=== PATIENT | male | born 1970 | race Asian ===

== ENCOUNTER 2025-07-31 13:02 | Outpatient (AMB) | payer OTHER, SELFPAY ==
--- NOTE | 2025-07-31 13:07 | A.OFFPC_ITS ---
Vital Signs 07/31/25 13:08 Height 5 ft 2 in Weight 124 lb 6 oz BMI 22.7 BP 96/60 Blood Pressure Location Lt brachial Position Sitting Respiration 18 Pulse 76 Pulse Source Pulse Oximeter Temp 97.3 F Temp Source Temporal Artery Scan Pulse Oximetry (%) 96 Oxygen Delivery Method Room Air Intake Visit Reasons: 1st visit, [employer] Health Advocate Required: No Accompanied by: Sister Allergies No Known Allergies Allergy (Verified 07/31/25 13:21) Medication List - Last Reconciled 07/31/25 by AZIZA Fountain No Known Home Meds Tobacco use date assessed: 07/31/25 Dental Screening Dental Screen Date: 07/31/25 Did you have a dental visit in the last 12 months?: No Did you have a dental problem in the last 6 months where you did not have access to dental care?: No Was dental information given to patient?: No HPI 1st visit, [employer] HPI Details The patient is a 54-year-old Chinese speaking gentleman He is presenting with his sister, Marta Barraza who interpreted for the patient Previous PCP: [facility] two and half years ago Last visit: Last PE: Specialist: no OBGYN:n/a Past medical history: No significant PMH Medications: n/a Family HX: DM and htn, hld both parents Problem: Patient's sister reports that H pylori is very coming in their community The patient has been having intermittent stomach pain, bloatedness and heartburn Reports that the patient has to use the bathroom soon after eating sometimes Described the stool as soft instead of diarrhea Denies blood in his stool, nausea or vomiting Epigastric pain and right upper quadrant pain on exam with palpation Abdominal ultrasound ordered to further evaluate The patient has not ever had a colonoscopy Reports nasal congestion and sore throat Bilateral nares turbinates boggy and erythematous, small amount of clear watery drainage noted in bilateral nasal passages Flonase nose spray ordered. 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 1. Little interest or pleasure in doing things: not at all 2. Feeling down, depressed, or hopeless: not at all 3. Trouble falling or staying asleep, or sleeping too much: not at all 4. Feeling tired or having little energy: not at all 5. Poor appetite or overeating: not at all 6. Feeling bad about yourself - or that you are a failure or have let yourself or your family down: not at all 7. Trouble concentrating on things, such as reading the newspaper or watching television: not at all 8. Moving or speaking so slowly that other people could have noticed. Or the opposite - being so fidgety or restless that you have been moving around a lot more than usual: not at all 9. Thoughts that you would be better off or of hurting yourself in some way: not at all Total score: 0 Depression Screening Interpretation: Negative Depression Screening Done: Yes 32617 - PHQ-9 Billing: Yes Source: Developed by Drs. Antoine Boles, Samara Cain, Good Moreno and colleagues, with an educational jerrica from [employer]. Thrive Questionnaire Date Thrive assessed: 07/31/25 AUDIT C Alcohol Use Questionnaire (AUDIT-C) 1. How often do you have a drink containing alcohol?: Monthly or less 2. How many drinks containing alcohol do you have on a typical day when you are drinking?: 1 or 2 3. How often do you have six or more drinks on one occasion?: Never Total Score: 1 RENATE-7 AMB Questionnaire RENATE-7 Date RENATE - 7 assessed: 07/31/25 Feeling nervous, anxious, or on edge: 0 = Not at all Not being able to stop or control worryin = Not at all Worrying too much about different things: 0 = Not at all Trouble relaxin = Not at all Being so restless that it is hard to sit still: 0 = Not at all Becoming easily annoyed or irritable: 0 = Not at all Feeling afraid as if something awful might happen: 0 = Not at all Total RENATE-7 score (0-4 normal; 5-9 mild; 10-14 moderate; 15-21 severe): 0 Source: Developed by Drs. Antoine Boles, Samara Cain, Good Moreno and colleagues, with an educational jerrica from [employer]. RENATE-7 Assessment Billing RENATE-7 Assessment Tool: RENATE-7 Assessment 81878 Review of Systems Const Denies headache(s) Eyes Denies loss of vision ENT Denies vertigo, Denies dizziness, Denies headache(s), Reports nasal congestion, Reports post nasal drip and Denies sore throat Card Denies chest pain, Denies leg edema and Denies lightheadedness Resp Denies cough, Denies hemoptysis and Denies wheezing GI Reports abdominal pain, Reports belching, Denies melena, Reports bloating, Denies constipation, Reports heartburn, Denies diarrhea, Reports loose stools and Denies vomiting Musc Reports back pain, Denies arthralgias, Denies joint swelling, Denies numbness, Reports radiating pain into limb (Posterior left leg) and Denies tingling Neuro Denies Abnormal speech present, Denies behavioral changes, Denies vertigo, Denies dizziness, Denies headache(s), Denies loss of vision, Denies memory loss, Denies numbness and Denies tingling Psych Denies anxiety, Denies behavioral changes, Denies depression, Denies memory loss and Denies panic attacks Jadon/Lymph Denies easy bleeding and Denies easy bruising Aller/Immun Denies wheezing Physical exam (Primary Care) Vital Signs: Last Vital Signs Temp 97.3 F 07/31/25 13:08 Pulse 76 07/31/25 13:08 Resp 18 07/31/25 13:08 BP 96/60 07/31/25 13:08 Pulse Ox 96 07/31/25 13:08 Oxygen Delivery Method Room Air 07/31/25 13:08 BMI result Body Mass Index 22.7 Tobacco/Smoking Status: Tobacco use Status Tobacco use date assessed 07/31/25 07/31/25 13:18 Patient Tobacco Use Status Former Tobacco user 07/31/25 13:18 e-Cigarette/Vaping Use Never Used 07/31/25 13:18 PHQ-9: PHQ-9 Score PHQ-9: Total score 0 07/31/25 13:37 Depression Screening Interpretation: Negative Thrive Assessment: Date of Thrive Assessment Date Thrive assessed 07/31/25 07/31/25 13:18 Const General: healthy appearing, no acute distress, alert and awake Nutritional Appearance: well nourished Orientation/consciousness: oriented to person, oriented to place and oriented to time HENMT Ears: TM's normal bilaterally General nose exam: Abnormal mucous membranes and turbinates present boggy and erythematous and Nasal discharge present clear bilateral Eyes Conjunctivae: conjunctivae normal Sclerae: sclerae normal Pupils: Equal, round and reactive pupils present Neck Neck: Yes no lymphadenopathy and Yes no JVD Thyroid: Thyroid normal Carotids: no bruits Resp Effort & Inspection: normal respiratory effort and not tachypneic Auscultation: no crackles, no rales, no rhonchi and no wheezes Cardio Rate: regular rate Rhythm: regular rhythm Heart sounds: S1 normal heart sound present, S2 normal heart sound present, no murmurs and normal S1 and S2 GI Palpation (GI): Soft to palpation, Tenderness to palpation present (GI) in the epigastrum and in the RUQ, no hepatomegaly and no splenomegaly Auscultation: normal bowel sounds Back/Spine/Pelvis Thoracic/Lumbar Spine: straight leg raise negative bilaterally and lumbar spinal tenderness Skin General skin exam: no rashes or lesions noted and dry skin Neuro General: oriented to person, oriented to place and oriented to time Cranial nerves: Yes Equal, round and reactive pupils present Speech: No Abnormal speech present Gait exam (Neuro): Normal gait present Motor exam (neuro): no tremor noted Extrem Right upper extremity: full ROM Left upper extremity: full ROM Right lower extremity: full ROM; no edema Left lower extremity: full ROM; no edema Psych Mental Status: mental status grossly normal Speech and movement: Normal speech and movement present Affect: normal affect Attitude: cooperative Thought process: Normal thought process present Coding Level of Care Code New Pt Level 4 (80284) Diagnoses Allergic rhinitis, unspecified seasonality, unspecified trigger J30.9 Allergic rhinitis trigger: unspecified Allergic rhinitis seasonality: unspecified Heartburn R12 RUQ abdominal pain R10.11 Epigastric abdominal pain R10.13 Chronic right-sided low back pain with right-sided sciatica M54.41; G89.29 Chronicity: chronic Back pain laterality: right Sciatica presence: with sciatica Sciatica laterality: sciatica of right side Additional Codes RENATE-7 Assessment Billing - RENATE-7 Assessment Tool: RENATE-7 Assessment 50275 ([id number]) PHQ-9 - 21867 - PHQ-9 Billing: Yes ([id number]) Time Spent (min) 39 Assessment & Plan Assessment & Plan (1) Allergic rhinitis: Code(s): J30.9 - Allergic rhinitis, unspecified Category: Medical Qualifiers: Allergic rhinitis trigger: unspecified Allergic rhinitis seasonality: unspecified Qualified Code(s): J30.9 - Allergic rhinitis, unspecified Plan: The patient is advised to avoid known allergens and may benefit from antihistamines to manage symptoms of allergic rhinitis. Flonase nose spray ordered b.i.d. (2) Heartburn: Code(s): R12 - Heartburn Category: Medical Plan: The patient will be prescribed omeprazole to manage symptoms of GERD, to be taken first thing in the morning before eating or drinking anything except water. (3) RUQ abdominal pain: Code(s): R10.11 - Right upper quadrant pain Category: Medical Plan: Abdominal ultrasound ordered to further evaluate (4) Epigastric abdominal pain: Code(s): R10.13 - Epigastric pain Category: Medical Plan: An abdominal ultrasound was ordered to further evaluate. The patient was started on omeprazole 40 mg daily. A stool sample will be collected to test for Helicobacter pylori, and treatment will be initiated if the infection is confirmed. (5) Low back pain: Code(s): M54.50 - Low back pain, unspecified Category: Medical Qualifiers: Chronicity: chronic Back pain laterality: right Sciatica presence: with sciatica Sciatica laterality: sciatica of right side Qualified Code(s): M54.41 - Lumbago with sciatica, right side; G89.29 - Other chronic pain Plan: Negative SLR test, lumbar x-ray ordered to further evaluate Orders: Orders Complete Blood Count Auto Diff Today M54.50 - Low back pain, unspecified, R10.11 - Right upper quadrant pain, R10.13 - Epigastric pain, Z00.00 - Encounter for general adult medical examination without abnormal findings Comprehensive [place]. Panel Fast Today M54.50 - Low back pain, unspecified, R10.11 - Right upper quadrant pain, R10.13 - Epigastric pain, Z00.00 - Encounter for general adult medical examination without abnormal findings TSH reflex Free T4 Today M54.50 - Low back pain, unspecified, R10.11 - Right upper quadrant pain, R10.13 - Epigastric pain, Z00.00 - Encounter for general adult medical examination without abnormal findings Amylase Today M54.50 - Low back pain, unspecified, R10.11 - Right upper quadrant pain, R10.13 - Epigastric pain, Z00.00 - Encounter for general adult medical examination without abnormal findings H pylori Ag Stool Today R10.11 - Right upper quadrant pain, R10.13 - Epigastric pain, R19.4 - Change in bowel habit Leukocytes Stool Qualitative Today R10.11 - Right upper quadrant pain, R10.13 - Epigastric pain, R12 - Heartburn, R19.4 - Change in bowel habit US abdomen complete Today R10.11 - Right upper quadrant pain, R10.13 - Epigastric pain XR lumbar spine 2-3V Today M54.50 - Low back pain, unspecified Transglutaminase Ab IgG Today M54.50 - Low back pain, unspecified, R10.11 - Right upper quadrant pain, R10.13 - Epigastric pain, R14.0 - Abdominal distension (gaseous), Z00.00 - Encounter for general adult medical examination without abnormal findings UA CC w/rflx Micro + Cult Today M54.50 - Low back pain, unspecified, R10.11 - Right upper quadrant pain, R10.13 - Epigastric pain, Z00.00 - Encounter for general adult medical examination without abnormal findings Lipase Today M54.50 - Low back pain, unspecified, R10.11 - Right upper quadrant pain, R10.13 - Epigastric pain, Z00.00 - Encounter for general adult medical examination without abnormal findings Lipid Panel Today M54.50 - Low back pain, unspecified, R10.11 - Right upper quadrant pain, R10.13 - Epigastric pain, Z00.00 - Encounter for general adult medical examination without abnormal findings Vitamin D 25-OH Total Today M54.50 - Low back pain, unspecified, R10.11 - Right upper quadrant pain, R10.13 - Epigastric pain, Z00.00 - Encounter for general adult medical examination without abnormal findings Referrals Gastroenterology Referral R10.11 - Right upper quadrant pain, R10.13 - Epigastric pain, R12 - Heartburn, R14.0 - Abdominal distension (gaseous), R19.4 - Change in bowel habit, Z12.11 - Encounter for screening for malignant neoplasm of colon Medications: New omeprazole 40 mg PO DAILY 90 caps 3RF fluticasone propionate 50 mcg/actuation administer into each nostril 1 spray intranasal BID 16 grams 0RF
[2025-07-31 13:08] VITALS: BP 96/60; PULSE 76; RESP 18; TEMP 36.3; O2SAT 96; BMI 22.7
== END 2025-07-31 13:58 | disposition home or self-care (01) ==
DX: J30.9 Allergic rhinitis, unspecified (principal); R12 Heartburn; R10.11 Right upper quadrant pain; R10.13 Epigastric pain; M54.41 Lumbago with sciatica, right side; G89.29 Other chronic pain

== ENCOUNTER → 2025-07-31 13:02 | Outpatient (BNVA) | payer OTHER, SELFPAY | DX: R10.11 Right upper quadrant pain (principal); J30.9 Allergic rhinitis, unspecified; R12 Heartburn; M54.41 Lumbago with sciatica, right side; G89.29 Other chronic pain; R19.4 Change in bowel habit | CPT/HCPCS: 96127 ==

== ENCOUNTER 2025-08-16 11:04 | Outpatient (REF) | payer OTHER, SELFPAY ==
--- NOTE | ~2025-08-16 | XR_ITS ---
EXAMINATION: XR LUMBOSACRAL SPINE CLINICAL INFORMATION: M54.50 - Low back pain, unspecified COMPARISON: None available. TECHNIQUE: Three views of the lumbosacral spine. FINDINGS: Bone alignment is normal. No fracture or dislocation. Mild degenerative spondylosis at L4-5. Mild lower lumbar spine facet arthritis. Disc spaces are normal. Paraspinal soft tissues are normal. XR/XR lumbar spine 2-3V IMPRESSION: Mild degenerative changes. Electronically signed by: Yesica Hughes MD 08/16/2025 12:34 PM EDT
--- NOTE | ~2025-08-16 | US_ITS ---
CLINICAL HISTORY: R10.11 - Right upper quadrant pain --- Additional Notes or Special Instructions: Needs [place]ese validation leader US abdomen complete Comparison: None provided Findings: The visualized pancreas is normal. The aorta and inferior vena cava are normal caliber. The appearance of the liver suggests fatty infiltration. Right lobe length is 11.8 cm. There is no intrahepatic bile duct dilatation. The common duct is 5 mm in diameter. The gallbladder is normal. There is no sonographic Maynard sign. The main portal vein is antegrade. The right kidney is 9.2 cm in length. The left kidney is 10.5 cm in length. The spleen is 9.8 cm in length. No ascites. IMPRESSION: 1. Hepatic steatosis. This document has been electronically signed by: Jimi Andrews MD on 08/17/2025 09:02:08
== END 2025-08-16 11:05 | disposition home or self-care (01) ==
LOC: HO.US 11:04
DX: R10.11 Right upper quadrant pain (principal); R10.13 Epigastric pain; M54.50 Low back pain, unspecified
CPT/HCPCS: 72100; 76700

== ENCOUNTER → 2025-08-16 11:11 | Outpatient (BNV) | payer OTHER, SELFPAY | PROVIDERS: Visit Provider Radiology Diagnostic Radiology | DX: M51.360 Other intervertebral disc degeneration, lumbar region with discogenic back pain only (principal) | CPT/HCPCS: 72100; 76700 ==

== ENCOUNTER 2025-09-19 16:03 | Outpatient (AMB) | payer OTHER, SELFPAY ==
--- NOTE | 2025-09-19 16:12 | A.OFFPC_ITS ---
Vital Signs 09/19/25 16:17 Height 5 ft 2 in Weight 124 lb 4 oz BMI 22.7 BP 102/62 Blood Pressure Location Lt brachial Position Sitting Respiration 18 Pulse 71 Pulse Source Pulse Oximeter Temp 97.3 F Temp Source Temporal Artery Scan Pulse Oximetry (%) 98 Oxygen Delivery Method Room Air Intake Visit Reasons: Annual Exam Planning Advisor Required: Yes Planning Advisor Name: Citizen Of [place]/[id number] Accompanied by: Self / Same As Patient Allergies No Known Allergies Allergy (Verified 09/19/25 16:33) Medication List - Last Reconciled 09/19/25 by AZIZA Fountain fluticasone propionate 50 mcg/actuation 1 spray intranasal BID omeprazole 40 mg PO DAILY Tobacco use date assessed: 09/19/25 Dental Screening Dental Screen Date: 09/19/25 Did you have a dental visit in the last 12 months?: No Did you have a dental problem in the last 6 months where you did not have access to dental care?: No Was dental information given to patient?: Patient has dentist HPI Annual Exam HPI Details Dentist: not yet, working on appointment Eye: no Snellen: Right: Left: Corrected vision: yes, glasses STI screening: Colonoscopy: never had this Pap Smer: PHQ-9: Flu: not-does not usually get this COVID:x 3 Tdap: due-next visit Diet: regular Exercise: no The patient is a 54-year-old Citizen Of [place] male presenting for an annual physical examination. Planning Advisor service used via Ipad. He is accompanied by daughter and son. Blood work was ordered at the last visit in preparation for this physical, but the results are not available in the system. The patient states he had the labs done, possibly at a [facility] facility, but there is uncertainty about the exact location, which may have been a different hospital than intended. A prior X-ray of the lower back showed degenerative changes, described as arthritis, from L4 to L5. The patient also had an ultrasound of the stomach performed. US abdomen is consistent with fatty liver. Patient's daughter verbalized that the patient consumes a significant amount of alcohol. He also uses a nasal spray and takes medication for heartburn before eating. Again the patient reports vague abdominal symptoms that are unclear, reports of some improvement with the starting of omeprazole The patient reports sciatic pain radiating down his left side Negative SLR test on exam [facility] Medical History Allergic rhinitis Bloated abdomen Heartburn Family History Father Diabetes mellitus HLD (hyperlipidemia) HTN (hypertension) Mother Diabetes mellitus HLD (hyperlipidemia) HTN (hypertension) Social History Household Members: Family Both parents involved: No Housing: House Alcohol intake: current Patient Tobacco Use Status: Former Tobacco user e-Cigarette/Vaping Use: Never Used Current occupational status: employed Current occupation: iron [employer] Cognitive needs: No Hearing needs: No Vision needs: No Questionnaire PHQ-9 Over the last 2 weeks, how often have you been bothered by any of the following problems? 1. Little interest or pleasure in doing things: not at all 2. Feeling down, depressed, or hopeless: not at all 3. Trouble falling or staying asleep, or sleeping too much: not at all 4. Feeling tired or having little energy: not at all 5. Poor appetite or overeating: not at all 6. Feeling bad about yourself - or that you are a failure or have let yourself or your family down: not at all 7. Trouble concentrating on things, such as reading the newspaper or watching television: not at all 8. Moving or speaking so slowly that other people could have noticed. Or the opposite - being so fidgety or restless that you have been moving around a lot more than usual: not at all 9. Thoughts that you would be better off or of hurting yourself in some way: not at all Total score: 0 Depression Screening Interpretation: Negative Depression Screening Done: Yes Source: Developed by Drs. Antoine Boles, Samara Cain, Good Moreno and colleagues, with an educational jerrica from [employer]. Thrive Questionnaire Date Thrive assessed: 07/31/25 I am a: Patient What is your living situation today?: I have a steady place to live Within the past 12 months, did the food you bought not last and you didn't have the money to get more?: Never true Within the past 12 months, did you worry whether your food would run out before you got money to buy more?: Never true Do you have trouble paying for medicines?: No Do you have trouble getting transportation to medical appointments?: No Do you have trouble paying your heating and electricity bill?: No Do you have trouble taking care of your child, family member or friend?: No Do you have trouble with day-to-day activities such as bathing, preparing meals, shopping, managing finances, etc.?: No Are you currently unemployed and looking for a job?: No Are you interested in more education?: No Please select the resources that you would like help with: None Currently or been in a relationship where the following occur: No concerns reported THRIVE Score: 0 AUDIT C Alcohol Use Questionnaire (AUDIT-C) 1. How often do you have a drink containing alcohol?: Never Total Score: 0 RENATE-7 AMB Questionnaire RENATE-7 Date RENATE - 7 assessed: 07/31/25 Feeling nervous, anxious, or on edge: 0 = Not at all Not being able to stop or control worryin = Not at all Worrying too much about different things: 0 = Not at all Trouble relaxin = Not at all Being so restless that it is hard to sit still: 0 = Not at all Becoming easily annoyed or irritable: 0 = Not at all Feeling afraid as if something awful might happen: 0 = Not at all Total RENATE-7 score (0-4 normal; 5-9 mild; 10-14 moderate; 15-21 severe): 0 Source: Developed by Drs. Antoine Boles, Samara Cain, Good Moreno and colleagues, with an educational jerrica from [employer]. Review of Systems Const Denies headache(s) Eyes Denies loss of vision ENT Denies vertigo, Denies dizziness, Denies headache(s), Reports nasal congestion, Reports post nasal drip and Denies sore throat Card Denies chest pain, Denies leg edema and Denies lightheadedness Resp Denies cough, Denies hemoptysis and Denies wheezing GI Reports abdominal pain, Reports belching, Denies melena, Reports bloating, Denies constipation, Reports heartburn, Denies diarrhea, Reports loose stools and Denies vomiting Musc Reports back pain, Denies arthralgias, Denies joint swelling, Denies numbness, Reports radiating pain into limb (Posterior left leg) and Denies tingling Neuro Denies Abnormal speech present, Denies behavioral changes, Denies vertigo, Denies dizziness, Denies headache(s), Denies loss of vision, Denies memory loss, Denies numbness and Denies tingling Psych Denies anxiety, Denies behavioral changes, Denies depression, Denies memory loss and Denies panic attacks Jadon/Lymph Denies easy bleeding and Denies easy bruising Aller/Immun Denies wheezing Physical exam (Primary Care) Vital Signs: Last Vital Signs Temp 97.3 F 09/19/25 16:17 Pulse 71 09/19/25 16:17 Resp 18 09/19/25 16:17 BP 102/62 09/19/25 16:17 Pulse Ox 98 09/19/25 16:17 Oxygen Delivery Method Room Air 09/19/25 16:17 BMI result Body Mass Index 22.7 Tobacco/Smoking Status: Tobacco use Status Tobacco use date assessed 09/19/25 09/19/25 16:22 Patient Tobacco Use Status Former Tobacco user 09/19/25 16:14 e-Cigarette/Vaping Use Never Used 09/19/25 16:14 PHQ-9: PHQ-9 Score PHQ-9: Total score 0 09/19/25 17:24 Depression Screening Interpretation: Negative Thrive Assessment: Date of Thrive Assessment Date Thrive assessed 07/31/25 09/19/25 16:14 Currently or been in a relationship where the following occur: No concerns reported Const General: healthy appearing, no acute distress, alert and awake Nutritional Appearance: well nourished Orientation/consciousness: oriented to person, oriented to place and oriented to time [facility] Ears: TM's normal bilaterally General nose exam: Abnormal mucous membranes and turbinates present boggy and erythematous and Nasal discharge present clear bilateral Eyes Conjunctivae: conjunctivae normal Sclerae: sclerae normal Pupils: Equal, round and reactive pupils present Neck Neck: Yes no lymphadenopathy and Yes no JVD Thyroid: Thyroid normal Carotids: no bruits Resp Effort & Inspection: normal respiratory effort and not tachypneic Auscultation: no crackles, no rales, no rhonchi and no wheezes Cardio Rate: regular rate Rhythm: regular rhythm Heart sounds: S1 normal heart sound present, S2 normal heart sound present, no murmurs and normal S1 and S2 GI Palpation (GI): Soft to palpation, Tenderness to palpation present (GI) in the epigastrum and in the RUQ, no hepatomegaly and no splenomegaly Auscultation: normal bowel sounds Back/Spine/Pelvis Thoracic/Lumbar Spine: straight leg raise negative bilaterally and lumbar spinal tenderness Skin General skin exam: no rashes or lesions noted and dry skin Neuro General: oriented to person, oriented to place and oriented to time Cranial nerves: Yes Equal, round and reactive pupils present Speech: No Abnormal speech present Gait exam (Neuro): Normal gait present Motor exam (neuro): no tremor noted Deep tendon reflexes (DTR's): Right triceps reflex intensity grade: 2+, Left triceps reflex intensity grade: 2+, Rt Biceps (C5, C6): 2+, Left biceps reflex intensity grade: 2+, Right brachioradialis reflex intensity grade: 2+, Left brachioradialis reflex intensity grade: 2+, Right patellar reflex intensity grade: 2+ and Left patellar reflex intensity grade: 2+ Extrem Right upper extremity: full ROM Left upper extremity: full ROM Right lower extremity: full ROM; no edema Left lower extremity: full ROM; no edema Psych Mental Status: mental status grossly normal Speech and movement: Normal speech and movement present Affect: normal affect Attitude: cooperative Thought process: Normal thought process present Coding Level of Care Code Est Pt Prev Care 40-64y([id number]) Diagnoses Annual physical exam Z00.00 Allergic rhinitis, unspecified seasonality, unspecified trigger J30.9 Allergic rhinitis trigger: unspecified Allergic rhinitis seasonality: unspecified Heartburn R12 RUQ abdominal pain R10.11 Epigastric abdominal pain R10.13 Chronic right-sided low back pain with right-sided sciatica M54.41; G89.29 Chronicity: chronic Back pain laterality: right Sciatica presence: with sciatica Sciatica laterality: sciatica of right side Time Spent (min) 39 Assessment & Plan Assessment & Plan (1) Annual physical exam: Code(s): Z00.00 - Encounter for general adult medical examination without abnormal findings Category: Medical Plan: The visit is for an annual physical, but previously ordered blood work results are missing. Staff will check the database and contact other potential hospital systems to locate the results. If the results cannot be found, the lab work will be re-ordered. Preventative guidelines reviewed with the patient. (2) Allergic rhinitis: Code(s): J30.9 - Allergic rhinitis, unspecified Category: Medical Qualifiers: Allergic rhinitis trigger: unspecified Allergic rhinitis seasonality: unspecified Qualified Code(s): J30.9 - Allergic rhinitis, unspecified Plan: The patient is advised to avoid known allergens and may benefit from antih istamines to manage symptoms of allergic rhinitis. Flonase nose spray ordered b.i.d. (3) Heartburn: Code(s): R12 - Heartburn Category: Medical Plan: The patient will be prescribed omeprazole to manage symptoms of GERD, to be taken first thing in the morning before eating or drinking anything except water. (4) RUQ abdominal pain: Code(s): R10.11 - Right upper quadrant pain Category: Medical Plan: abdominal us done on 08/17/2025. Consistent hepatosteatosis. (5) Epigastric abdominal pain: Code(s): R10.13 - Epigastric pain Category: Medical Plan: Ultrasound shows hepatic steatosis. Symptoms improved since started on omeprazole 40 mg. Stool sample was ordered for H pylori evaluation but has not been completed as yet. (6) Low back pain: Code(s): M54.50 - Low back pain, unspecified Category: Medical Qualifiers: Chronicity: chronic Back pain laterality: right Sciatica presence: with sciatica Sciatica laterality: sciatica of right side Qualified Code(s): M54.41 - Lumbago with sciatica, right side; G89.29 - Other chronic pain Plan: Negative SLR test, lumbar x-ray shows degenerative changes, described as arthritis, from L4 to L5. Continue ibuprofen 600 mg q.6 p.r.n. prednisone taper ordered Medications: New prednisone see taper instructions take 4 tabs x 2 days, then 3 tabs x 2 days, then 2 tab x 2 days then 1 tab x2 days =20 tabs for 8 days 10 mg PO DIRECTED 20 tabs 0RF R10.13 - Epigastric pain ibuprofen 600 mg PO Q6H PRN 30 tabs 0RF pain R10.13 - Epigastric pain
[2025-09-19 16:17] VITALS: BP 102/62; PULSE 71; RESP 18; TEMP 36.3; O2SAT 98; BMI 22.7
== END 2025-09-19 17:31 | disposition home or self-care (01) ==
LOC: HO.HMCH 16:04
DX: Z00.00 Encounter for general adult medical examination without abnormal findings (principal); J30.9 Allergic rhinitis, unspecified; R12 Heartburn; R10.11 Right upper quadrant pain; R10.13 Epigastric pain; M54.41 Lumbago with sciatica, right side; G89.29 Other chronic pain